=== PATIENT | female | born 1965 | race Caucasian/White ===

== ENCOUNTER 2018-08-08 17:03 | Emergency (ER) | payer OTHER ==
[2018-08-08 17:38] VITALS: BP 186/94
--- NOTE | 2018-08-08 18:07 | UC ---
Back Pain HPI - History of Current Complaint Chief Complaint: UCLowerExtremity Stated Complaint: RIGHT THIGH/HIP COMPLAINT Time Seen by Provider: 08/08/18 17:30 Hx Obtained From: Patient Hx Last Menstrual Period: WK AND 1/2 AGO ?: No Onset/Duration: Gradual Onset - Has had pain over the last 3 weeks with no known injury other than her job which involves lifting bags of laundry Timing: Intermittent - Pain free when at rest. Usually has some mild pain if walking extensively. Severity Initially: Mild Severity Currently: Mild Pain Intensity: 0 - Allergies/Home Medications Allergies/Adverse Reactions: Allergies Allergy/AdvReac Type Severity Reaction Status Date / Time No Known Allergies Allergy Verified 08/08/18 17:40 PMH/Surg Hx/FS Hx/Imm Hx Previously Healthy: Yes - Surgical History Surgical History: Yes Surgery Procedure, Year, and Place: HERNIA REPAIR. EARDRUM SX - Family History Known Family History: Positive: Unknown - Social History Occupation: Employed Full-time Alcohol Use: Weekly Substance Use Type: None Smoking Status (MU): Never Smoked Tobacco Review of Systems All Other Systems Reviewed And Are Negative: Yes Constitutional: Positive: Negative - Denies any saddle anesthesia Skin: Positive: Negative ENT: Positive: Negative Respiratory: Positive: Negative Cardiovascular: Positive: Negative Gastrointestinal: Positive: Negative Genitourinary: Positive: Negative. Negative: Hematuria Motor: Positive: Negative - Good ROM, walks without difficulty. Neurovascular: Positive: Negative Musculoskeletal: Positive: Negative Neurological: Positive: Negative Psychological: Positive: Negative Is Patient Immunocompromised?: No Physical Exam Triage Information Reviewed: Yes Appearance: Well-Appearing, No Pain Distress, Well-Nourished Vital Signs: Initial Vital Signs Temp 98.0 F 08/08/18 17:33 Pulse 70 08/08/18 17:33 Resp 16 08/08/18 17:33 BP 186/94 08/08/18 17:33 Pulse Ox 100 08/08/18 17:33 Vital Signs Reviewed: Yes Respiratory Exam: Normal Cardiovascular Exam: Normal Abdominal Exam: Normal Bowel Sounds: Positive: Present Musculoskeletal Exam: Normal Musculoskeletal: Positive: Strength Intact, ROM Intact - Reflexes +2 at the knees, negative straight leg raise. Neurological: Positive: Alert, Muscle Tone Normal Psychological Exam: Normal Psychological: Positive: Normal Response To Family Skin Exam: Normal Back Pain Course/Dx - Course Course Of Treatment: Pt comfortable here with atraumatic intermittent right hip pain over the past 3 weeks. Has been taking Motrin with occasional relief. No specific injury. 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 She had a prior instance of left hip pain similar to this which was resolved with physical therapy. I am going to write a RX for Physical Therapy evaluation and treatment and follow up with her primary doctor early next week. This may be slight sciatica and the pt was given discharge instructions as such. - Differential Dx/Diagnosis Provider Diagnosis: Chronic pain of right hip Discharge - Sign-Out/Discharge Documenting (check all that apply): Patient Departure All imaging exams completed and their final reports reviewed: No Studies - Discharge Plan Condition: Good Disposition: HOME Patient Education Materials: Sciatica (ED) Referrals: No Primary Care Phys,NOPCP [Primary Care Provider] - Additional Instructions: Avoid movements that cause pain. Definite follow up for Physical Therapy evaluation and treatment. Follow up with your Primary care provider next week if continued pain. Avoid sitting for long periods of time, avoid long car rides. - Billing Disposition and Condition Condition: GOOD Disposition: Home - Attestation Statements Provider Attestation: Per institutional requirements, I have reviewed the chart, however, I was not consulted specifically or made aware of this patient by the midlevel provider. I did not personally evaluate, interact with , or disposition this patient.
== END 2018-08-08 18:36 | disposition home or self-care (01) ==
LOC: UCCORT 17:03
DX: M25.551 Pain in right hip (principal); G89.29 Other chronic pain
CPT/HCPCS: 99201; G0463